=== PATIENT | female | born 1985 | race Caucasian/White ===

== ENCOUNTER 2021-02-18 11:10 | Emergency (ER) | payer BC, OTHER ==
[~2021-02-18 11:10] MED LIST: IBUPROFEN600 MG PO
[2021-02-18 12:08] LABS: HEMOGLOBIN 13.6 gm/dl (12.3-15.3); RED BLOOD COUNT 4.47 M/UL (4.00-5.10); WHITE BLOOD COUNT 8.1 K/UL (4.5-11.0)
[2021-02-18 12:31] LABS: BUN/CREATININE RATIO 12 (0-10)
== END 2021-02-18 16:10 | disposition home or self-care (01) ==
LOC: ER1 11:10
PROVIDERS: Nurse Practitioner
DX: R07.89 Other chest pain (principal)
CPT/HCPCS: 71045; 80053; 82550; 82553; 83874; 84484; 84703; 85025; 93005; 99285

== ENCOUNTER 2021-03-03 21:22 | Emergency (ER) | payer BC, OTHER ==
[~2021-03-03] VITALS: Ht 157.5 cm; Wt 64.4 kg
== END 2021-03-04 06:00 | disposition home or self-care (01) ==
LOC: ER1 21:22
DX: U07.1 COVID-19 (principal); Z23 Encounter for immunization
CPT/HCPCS: 71045; 99285; M0243; U0002